=== PATIENT | female | born 1995 | race African-American/Black ===

== ENCOUNTER 2016-06-28 10:19 | Emergency (ER) | payer OTHER ==
[~2016-06-28] VITALS: Ht 337.8 cm; Wt 54.4 kg
[2016-06-28 11:47] VITALS: BP 100/62
== END 2016-06-28 11:48 | disposition home or self-care (01) ==
LOC: ER 10:20
DX: J03.00 Acute streptococcal tonsillitis, unspecified (principal)

== ENCOUNTER 2022-07-14 09:14 | Emergency (ER) | payer MEDICAID, OTHER ==
[~2022-07-14] VITALS: Ht 167.6 cm; Wt 60.9 kg
[2022-07-14 09:50] VITALS: BP 118/76
[2022-07-14] MEDS ORDERED: KETOROLAC TROMETH 60MG/2ML VIAL IM ONE (10:45)
[2022-07-14] MEDS ORDERED: DexAMETHasone SOD PHOS 10MG/1ML VIAL INJ IM ONE (10:45)
[2022-07-14] MEDS ORDERED: PENICILLIN G BENZ 1200000 UNITS/2 ML SYRG IM ONE (11:00)
[2022-07-14] MEDS ORDERED: IBUP600T28 PO (11:59)
== END 2022-07-14 12:21 | disposition home or self-care (01) ==
LOC: ER 09:14
DX: J02.0 Streptococcal pharyngitis (principal)
CPT/HCPCS: 87070; 87880; 96372; 99284; J0561; J1100; J1885